=== PATIENT | male | born 2005 | race Caucasian/White ===

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

== ENCOUNTER 2024-11-09 20:45 | Emergency (ER) | payer OTHER ==
[~2024-11-09] VITALS: Ht 180.3 cm; Wt 61.8 kg
[2024-11-09] MEDS ORDERED: DIPHTH,PERTUSS(ACELL),TET VAC 0.5 ML SYRINGE IM ONE (21:00)
[2024-11-09] MEDS ORDERED: fentaNYL citrate 100 MCG/2 ML VIAL IV ONE (21:00)
[2024-11-09] MEDS ORDERED: LACTATED RINGER'S 1,000 ML IV ONE (21:00)
[2024-11-09 21:02] LABS: BASOPHILS 0.5 % (0.2-1.2); EOSINOPHILS 1.7 % (0.8-7.0); LYMPHOCYTES 13.0 % (21.8-53.1); MCH 29.0 PG (25.7-32.2); MCHC 33.2 g/dL (32.3-36.5); MCV 87.4 fL (79.0-92.2); MONOCYTES 6.5 % (5.3-12.2); NEUTROPHILS 77.8 % (34.0-67.9); RBC 5.00 M/uL (4.63-6.08)
[2024-11-09 21:17] LABS: ALCOHOL, MEDICAL <3 ng/dL (<3); ALT (SGPT) 30 U/L (14-59); AST (SGOT) 20 U/L (15-37); GLOMERULAR FILTRATION RATE,EST 89 mL/min (>60); PROTEIN, TOTAL 8.0 g/dL (6.4-8.2); UREA NITROGEN 19 mg/dL (7-18)
[2024-11-09] MEDS ORDERED: HYDROmorphone HCL 1 MG/ML SYR IV PRN (21:45)
[2024-11-09] MEDS ORDERED: HYDROmorphone HCL 1 MG/ML SYR IV ONE (22:15)
[2024-11-09] MEDS ORDERED: HYDROCODON-ACE1 EA10 PO (22:43)
[2024-11-09] MEDS ORDERED: AMOX TR-K CLV1 EAC1 PO (22:43)
[2024-11-09] MEDS ORDERED: BACITRACIN28.4 GM TOP (22:50)
[2024-11-09] MEDS ORDERED: AMOXICILLIN/CLAVULANATE K 875 MG HOME.PACK PO ONE (23:00)
[2024-11-09] MEDS ORDERED: HYDROCODONE BIT/ACETAMINOPHEN 5/325 MG 1 TAB HOME.PACK PO ONE (23:00)
[2024-11-09 23:18] VITALS: BP 139/83
--- NOTE | 2024-11-10 21:15 | EKG ---
[facility] [address] [place] [address] Signed Normal sinus rhythm Rightward axis Borderline ECG When compared with ECG of 11-JUN-2023 13:18, No significant change was found Confirmed by Kelsy Hurtado MD () on 11/10/2024 9:15:20 PM Electronically Signed By: KELSY HURTADO MD 11/10/242114 PATIENT NAME: BERNARD DE LEON Electrocardiogram DATE OF : [birth year] PHYSICIAN: KELSY HURTADO MD REPORT #: [id number] REPORT IS CONFIDENTIAL AND NOT TO BE RELEASED WITHOUT AUTHORIZATION
== END 2024-11-09 23:18 | disposition home or self-care (01) ==
LOC: ED 20:45
PROVIDERS: Family Medicine
DX: S22.059A Unspecified fracture of T5-T6 vertebra, initial encounter for closed fracture (principal); S22.069A Unspecified fracture of T7-T8 vertebra, initial encounter for closed fracture; S22.079A Unspecified fracture of T9-T10 vertebra, initial encounter for closed fracture; S40.211A Abrasion of right shoulder, initial encounter; S70.211A Abrasion, right hip, initial encounter; S30.810A Abrasion of lower back and pelvis, initial encounter; M21.961 Unspecified acquired deformity of right lower leg; G54.0 Brachial plexus disorders; V89.2XXA Person injured in unspecified motor-vehicle accident, traffic, initial encounter
CPT/HCPCS: 36415; 71260; 72125; 73030; 73630; 74177; 80053; 85025; 90471; 90715; 93005; 93010; 96374; 96375; 99284-25; A9270; G0480; J1171; J2405; J3010; J7121; Q9967